=== PATIENT | female | born 1970 | race Caucasian/White ===

== ENCOUNTER 2022-06-19 01:14 | Day surgery (SDC) | payer OTHER, SELFPAY ==
[2022-06-08 14:38] VITALS: BMI 46.8
[2022-06-19 10:32] VITALS: BP 133/84; PULSE 86; RESP 20; TEMP 36.2; O2SAT 98; BMI 41.5
--- NOTE | 2022-06-19 10:36 | P.PNAN_ITS ---
Anes - Initial Pre Proc Eval Procedure: Operation Date: 06/19/22 11:00 Proposed Procedures p Screening Colonoscopy - Andrey Fleming MD Date/Time: 06/19/22 10:36 Surgeon: Andrey Fleming MD Pre Op Diagnosis: neoplasm screening Patient Data Age: 51 Gender: F Height: 1.68 m Weight: 116.7 kg Last Vital Signs Temp 36.2 C L 06/19/22 10:32 Pulse 86 06/19/22 10:32 Resp 20 06/19/22 10:32 BP 133/84 06/19/22 10:32 Pulse Ox 98 06/19/22 10:32 O2 Del Method Room Air 06/19/22 10:32 Allergies Allergy/AdvReac Type Severity Reaction Status Date / Time No Known Allergies Allergy Verified 06/19/22 10:30 Home Medications Medication Instructions Recorded Confirmed Type atorvastatin 10 mg tablet 10 mg PO HS 06/08/22 06/08/22 History baclofen 10 mg tablet 10 mg PO HS 06/08/22 06/08/22 History buspirone 10 mg tablet 10 mg PO HS 06/08/22 06/08/22 History cetirizine 10 mg tablet (All Day 10 mg PO DAILY 06/08/22 06/08/22 History Allergy (cetirizine)) lamotrigine 25 mg tablet 25 mg PO HS 06/08/22 06/08/22 History levothyroxine 175 mcg tablet 175 mcg PO DAILY 06/08/22 06/08/22 History linagliptin 5 mg tablet (Tradjenta) 5 mg PO DAILY 06/08/22 06/08/22 History metformin 500 mg tablet,extended 500 mg PO HS 06/08/22 06/08/22 History release 24 hr montelukast 10 mg tablet 10 mg PO HS 06/08/22 06/08/22 History paroxetine HCl 40 mg tablet 40 mg PO DAILY 06/08/22 06/08/22 History Patient hx anesthesia problems: none Family hx anesthesia problems: none Results Review: All pre-operative results and documents have been reviewed as part of the pre- operative evaluation. [facility] Past Medical History Medical History (Updated 06/19/22 @ 10:39 by Romeo Shepherd MD) Anxiety Asthma Chronic GERD COPD (chronic obstructive pulmonary disease) Depression Diabetes Morbid obesity with BMI of 40.0-44.9, adult HIGINIO (obstructive sleep apnea) Social History Social History Years smoked: 35 Smoking status: Current every day smoker Tobacco type: cigarettes Alcohol intake: never Substance use: never Substance use type: does not use Living arrangements: alone Spiritual care concerns: No Anes - Eval Final PreProcedure Day of Procedure 06/19/22 10:36 Patient weight: morbidly obese Heart: regular rate and rhythm Lungs: clear to auscultation and normal air movement Airway: Mallampati scale class II Neurological: alert and oriented Last oral intake: >/= 8 hours ASA classification: III Emergent: no Anesthetic plan: proceed Anesthesia type and monitoring: general GIVS Results Review: All pre-operative results and documents have been reviewed as part of the pre- operative evaluation. Informed Consent: The patient's anesthetic plan and its attendant risks and benefits were discussed with the patient/family/POA. Questions were solicited and answers provided to the satisfaction of the patient/family/POA.
[2022-06-19] MEDS: LACTATED RINGERS 1,000 ML 150 ML IV CONT (10:47)
[2022-06-19 10:50] LABS: Glucose Point of Care 140 mg/dl (65-105)
--- NOTE | 2022-06-19 11:29 | P.HP_ITS ---
History of Present Illness History of Present Illness Consent: Risks, benefits, and alternatives have been discussed and questions answered. Patient agrees to proceed with procedure. Chief complaint: neoplasm screening Narrative: Elen Ball is a 51 year old female Presents for screening colonoscopy. Patient's current weight appetite and bowel movements are normal. She denies abdominal pain. She has had no bleeding. Family history is noncontributory. Review of Systems Review of Systems: Review of systems noncontributory. [facility] Past Medical History Medical History (Updated 06/19/22 @ 11:30 by Andrey Fleming MD) Anxiety Asthma Chronic GERD COPD (chronic obstructive pulmonary disease) Depression Diabetes Morbid obesity with BMI of 40.0-44.9, adult HIGINIO (obstructive sleep apnea) Social History Social History Years smoked: 35 Smoking status: Current every day smoker Tobacco type: cigarettes Alcohol intake: never Substance use: never Substance use type: does not use Living arrangements: alone Spiritual care concerns: No Meds Home Medications and Allergies Home Medications Medication Instructions Recorded Confirmed Type atorvastatin 10 mg tablet 10 mg PO HS 06/08/22 06/08/22 History baclofen 10 mg tablet 10 mg PO HS 06/08/22 06/08/22 History buspirone 10 mg tablet 10 mg PO HS 06/08/22 06/08/22 History cetirizine 10 mg tablet (All Day 10 mg PO DAILY 06/08/22 06/08/22 History Allergy (cetirizine)) lamotrigine 25 mg tablet 25 mg PO HS 06/08/22 06/08/22 History levothyroxine 175 mcg tablet 175 mcg PO DAILY 06/08/22 06/08/22 History linagliptin 5 mg tablet (Tradjenta) 5 mg PO DAILY 06/08/22 06/08/22 History metformin 500 mg tablet,extended 500 mg PO HS 06/08/22 06/08/22 History release 24 hr montelukast 10 mg tablet 10 mg PO HS 06/08/22 06/08/22 History paroxetine HCl 40 mg tablet 40 mg PO DAILY 06/08/22 06/08/22 History Allergies Allergy/AdvReac Type Severity Reaction Status Date / Time No Known Allergies Allergy Verified 06/19/22 10:30 Vital Signs Vital Signs - 24 hr 06/19/22 10:32 Temperature 97.1 F L Pulse Rate 86 Respiratory Rate 20 Blood Pressure 133/84 Pulse Oximetry 98 Oxygen Delivery Room Air Exam Narrative: Physical exam reveals patient to be alert. Vital signs stable. HEENT exam is unremarkable. Patient is anicteric. Lungs are clear to auscultation and percussion. Heart is without murmur or extra sounds. Abdomen bowel sounds are present soft nontender with no organomegaly. Digital external rectal exam is normal. Assessment and Plan Assessment and plan (1) Encounter for screening colonoscopy: Code(s): Z12.11 - Encounter for screening for malignant neoplasm of colon Status: Acute Assessment and Plan: Patient presents today for screening colonoscopy. She appears to be at average risk for colon polyps.
[2022-06-19 12:07] VITALS: BP 119/78; PULSE 71; RESP 19; O2SAT 99
[2022-06-19 12:17] VITALS: BP 121/79; PULSE 67; RESP 22; O2SAT 98
[2022-06-19 12:27] VITALS: BP 127/76; PULSE 65; RESP 19; O2SAT 99
== END 2022-06-19 12:34 | disposition home or self-care (01) ==
PROVIDERS: PCP Family Medicine; Visit Provider Internal Medicine Gastroenterology
PROC: 0DJD8ZZ Inspection of Lower Intestinal Tract, Via Natural or Artificial Opening Endoscopic (ICD-10-PCS; CPT 45378; principal; 2022-06-19 11:00)
DX: Z12.11 Encounter for screening for malignant neoplasm of colon (principal); K63.5 Polyp of colon; K64.8 Other hemorrhoids; Z79.84 Long term (current) use of oral hypoglycemic drugs; J44.9 Chronic obstructive pulmonary disease, unspecified; E11.9 Type 2 diabetes mellitus without complications; K21.9 Gastro-esophageal reflux disease without esophagitis; G47.33 Obstructive sleep apnea (adult) (pediatric); F41.9 Anxiety disorder, unspecified; F32.A Depression, unspecified; E66.01 Morbid (severe) obesity due to excess calories; Z68.41 Body mass index [BMI] 40.0-44.9, adult; F17.210 Nicotine dependence, cigarettes, uncomplicated
CPT/HCPCS: 45385; 82948; 88305; J2704; J7120